=== PATIENT | male | born 1990 | race Caucasian/White ===

== ENCOUNTER 2017-01-19 12:14 | Inpatient (IN) | payer MEDICARE, OTHER ==
[~2017-01-19] VITALS: Ht 182.9 cm; Wt 80.1 kg
[2017-01-19 12:20] VITALS: BP 137/82; PULSE 86; RESP 17; TEMP 97.8; O2SAT 99
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
[2017-01-19] MEDS ORDERED: RISP3 PO (12:37)
[2017-01-19] MEDS ORDERED: LITH150C PO (12:37)
[2017-01-19 13:25] LABS: AUTOMATED NEUTROPHIL # 5.7 TH/MM3 (1.8-7.7); BASOPHIL % 0.2 % (0.0-2.0); EOSINOPHIL # 0.1 TH/MM3 (0-0.4); EOSINOPHIL % 0.9 % (0.0-4.0); HEMATOCRIT 40.1 % (39.0-51.0); HEMOGLOBIN 13.6 GM/DL (13.0-17.0); LYMPH % 22.9 % (9.0-44.0); LYMPHOCYTE # 1.9 TH/MM3 (1.0-4.8); MEAN CELL VOLUME 92.6 FL (80.0-100.0); MEAN CORPUSCULAR HEMOGLOBIN 31.3 PG (27.0-34.0); MEAN CORPUSCULAR HGB CONC 33.8 % (32.0-36.0); MEAN PLATELET VOLUME 9.4 FL (7.0-11.0); MONO % 7.2 % (0.0-8.0); MONOCYTE # 0.6 TH/MM3 (0-0.9); NEUT % 68.8 % (16.0-70.0); PLATELET COUNT 200 TH/MM3 (150-450); RED BLOOD COUNT 4.33 MIL/MM3 (4.50-5.90); RED CELL DISTRIBUTION WIDTH 13.9 % (11.6-17.2); WHITE BLOOD COUNT 8.3 TH/MM3 (4.0-11.0)
[2017-01-19 13:37] LABS: ALBUMIN 3.9 GM/DL (3.4-5.0); AST (GOT) 13 U/L (15-37); BICARBONATE 24.9 MEQ/L (21.0-32.0); BLOOD UREA NITROGEN 11 MG/DL (7-18); CALCIUM 8.7 MG/DL (8.5-10.1); CHLORIDE 106 MEQ/L (98-107); GLOMERULAR FILTRATION RATE 118 ML/MIN (>89); GLUCOSE,RANDOM 84 MG/DL (74-106); SODIUM (NA) 138 MEQ/L (136-145)
[2017-01-19 13:38] LABS: ALT (GPT) 32 U/L (12-78)
[2017-01-19 13:40] LABS: ALKALINE PHOSPHATASE 65 U/L (45-117); TOTAL BILIRUBIN ADULT 0.2 MG/DL (0.2-1.0); TOTAL PROTEIN 6.8 GM/DL (6.4-8.2)
[2017-01-19 15:32] VITALS: BP 124/83; TEMP 97.8
[2017-01-19 16:29] VITALS: BP 131/83; PULSE 73; RESP 18; O2SAT 97
[2017-01-19] MEDS ORDERED: ACETAMINOPHEN 325 MG TAB PO PRN (16:30)
[2017-01-19] MEDS ORDERED: diphenhydrAMINE HCL 50 MG/ML VIAL IM PRN (16:30)
[2017-01-19] MEDS ORDERED: diphenhydrAMINE HCL 50 MG CAP PO PRN (16:30)
[2017-01-19] MEDS ORDERED: LORazepam 1 MG TAB PO PRN (16:30)
[2017-01-19] MEDS ORDERED: ALUMINUM/MAGNESIUM/SIMETH 30 ML CUP PO PRN (16:30)
[2017-01-19] MEDS ORDERED: MAGNESIUM HYDROXIDE SUSP 30 ML CUP PO PRN (16:30)
[2017-01-19] MEDS ORDERED: LORazepam 2 MG/ML VIAL IM PRN (16:30)
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
[2017-01-19] MEDS ORDERED: ARIPiprazole 5 MG TAB PO SCH (21:00)
[2017-01-19 21:05] VITALS: BP 139/84; PULSE 76; RESP 16; TEMP 98; O2SAT 99
[2017-01-20 08:00] LABS: AUTOMATED NEUTROPHIL # 4.4 TH/MM3 (1.8-7.7); BASOPHIL % 0.4 % (0.0-2.0); EOSINOPHIL % 0.6 % (0.0-4.0); HEMATOCRIT 42.1 % (39.0-51.0); HEMOGLOBIN 14.2 GM/DL (13.0-17.0); LYMPH % 20.3 % (9.0-44.0); LYMPHOCYTE # 1.3 TH/MM3 (1.0-4.8); MEAN CELL VOLUME 92.5 FL (80.0-100.0); MEAN CORPUSCULAR HEMOGLOBIN 31.2 PG (27.0-34.0); MEAN CORPUSCULAR HGB CONC 33.8 % (32.0-36.0); MEAN PLATELET VOLUME 9.5 FL (7.0-11.0); MONO % 6.6 % (0.0-8.0); MONOCYTE # 0.4 TH/MM3 (0-0.9); NEUT % 72.1 % (16.0-70.0); PLATELET COUNT 199 TH/MM3 (150-450); RED BLOOD COUNT 4.55 MIL/MM3 (4.50-5.90); RED CELL DISTRIBUTION WIDTH 13.9 % (11.6-17.2); WHITE BLOOD COUNT 6.2 TH/MM3 (4.0-11.0)
[2017-01-20 08:36] LABS: ALBUMIN 3.9 GM/DL (3.4-5.0); ALT (GPT) 31 U/L (12-78); AST (GOT) 12 U/L (15-37); BICARBONATE 24.8 MEQ/L (21.0-32.0); BLOOD UREA NITROGEN 8 MG/DL (7-18); CHLORIDE 104 MEQ/L (98-107); CHOLESTEROL 154 MG/DL (120-200); CREATININE 0.78 MG/DL (0.60-1.30); GLOMERULAR FILTRATION RATE 121 ML/MIN (>89); GLUCOSE,RANDOM 82 MG/DL (74-106); SODIUM (NA) 138 MEQ/L (136-145); TRIGLYCERIDES 52 MG/DL (42-150)
[2017-01-20 09:03] LABS: ALKALINE PHOSPHATASE 59 U/L (45-117); CHOLESTEROL/ HDL RATIO 2.17 RATIO; HDL CHOLESTEROL 70.9 MG/DL (40.0-60.0); LDL CHOLESTEROL 73 MG/DL (0-99); TOTAL BILIRUBIN ADULT 0.5 MG/DL (0.2-1.0); TOTAL PROTEIN 7.3 GM/DL (6.4-8.2)
[2017-01-20] MEDS ORDERED: ACETAMINOPHEN 325 MG TAB PO PRN (10:45)
[2017-01-20 10:53] LABS: HEMOGLOBIN A1C 5.6 % (4.3-6.0)
--- NOTE | 2017-01-20 11:10 | HHI.PYPN ---
Subjective Remarks Patient initially seen by Dr. Yuriy Ellis on 01/19/17 his initial psychiatric evaluation reviewed and agreed with. Patient seen by me today I have completed the inpatient admission psychiatric template. Review the med reconciliation. I also talked to the patient's mother rahul at [phone]. She verifies his history. It appears she is a single parent they initially moved to the [facility] about 2 months ago to be closer to family. It appears that relocation was a failure. Then on the process of returning to [place]. Was a question of the patient's compliance with his schedule psychotropic medication during this interval, he also acknowledges continued daily marijuana as much as he can. His urine toxicology is also positive for marijuana. [place] level on admission was 0.1. Then event mother is somewhat concerned about the efficacy of the medication though she minimizes the role that marijuana is playing. She is also done some self adjustment of his medications primarily the Respinol. He has been hospitalized in [place] the diagnosis of bipolar disorder. There is a family history of bipolar disorder also. At the present time patient sitting quietly in his room nurse Lexi present throughout session patient is calm cooperative me but quite vigilant with significant paranoid overlay Tamiko frequently is somewhat suspicious glance towards the nurse. However does acknowledge his mental health history and his marijuana use, though he does somewhat vaguely acknowledge multiple drug abuse including cocaine and mildly use, along with benzodiazepines. He is willing to continue on with his Respinol. His mother also agrees for continuation of the Respinol. Mother does wish to return to [place] as soon as possible. However this time I feel we have no further observation and treatment on this young man before releasing him to his mother. We'll give him 4 mg Respinol at this time, or to 3 mg twice a day per the med reconciliation for tonight and tomorrow morning. We'll meet with patient's mother 9 AM tomorrow morning if things seem stable and mother is willing to do this we'll discharge him tomorrow to the mother to continue his journey back home where he does have appropriate mental health and medical care over this time he does continue to meet [place] criteria I did a first opinion petition supporting [place] act requests a second opinion petition. I feel has capacity to sign for his medications Review of Systems Constitutional: DENIES: Diaphoretic episodes, Fatigue, Fever, Weight gain, Weight loss, Chills, Dizziness, Change in appetite, Night Sweats Endocrine: DENIES: Heat/cold intolerance, Polydipsia, Polyuria, Polyphagia Eyes: DENIES: Blurred vision, Diplopia, Eye inflammation, Eye pain, Vision loss , Photosensitivity, Double Vision Ears, nose, mouth, throat: DENIES: Tinnitus, Hearing loss, Vertigo, Nasal discharge, Oral lesions, Throat pain, Hoarseness, Ear Pain, Running Nose, Epistaxis, Sinus Pain, Toothache, Odynophagia Respiratory: DENIES: Apneas, Cough, Snoring, Wheezing, Hemoptysis, Sputum production, Shortness of breath Cardiovascular: DENIES: Chest pain, Palpitations, Syncope, Dyspnea on Exertion , PND, Lower Extremity Edema, Orthopnea, Claudication Gastrointestinal: DENIES: Abdominal pain, Black stools, Bloody stools, Constipation, Diarrhea, Nausea, Vomiting, Difficulty Swallowing, Anorexia Genitourinary: DENIES: Sexual dysfunction, Urinary frequency, Urinary incontinence, Urgency, Hematuria, Dysuria, Nocturia, Penile Discharge, Testicular Pain, Testicular Swelling Musculoskeletal: DENIES: Joint pain, Muscle aches, Stiffness, Joint Swelling, Back pain, Neck pain Integumentary: DENIES: Abnormal pigmentation, Nail changes, Pruritus, Rash Hematologic/lymphatic: DENIES: Bruising, Lymphadenopathy Immunologic/allergic: DENIES: Eczema, Urticaria Neurologic: DENIES: Abnormal gait, Headache, Localized weakness, Paresthesias, Seizures, Speech Problems, Tremor, Poor Balance Psychiatric: COMPLAINS OF: Hallucinations (vague auditory marked vigilance) Mental Status Examination Appearance: Appropriate Consciousness: Alert Orientation: x4 Motor Activity: Normal gait Speech: Unremarkable Language: Adequate Fund of Knowledge: Adequate Attention and Concentration: Adequate Memory: Unremarkable Mood: Anxious, Irritable (mildly) Affect: Other (increase range and intensity) Thought Process & Associations: Loose associations Thought Content: Bizarre thinking, Delusional Hallucination Type: None, Auditory (a may be responding to some internal stimuli) Delusion Type: Paranoid Suicidal Ideation: No Suicidal Plan: No Suicidal Intention: No Homicidal Ideation: No Homicidal Plan: No Homicidal Intention: No Insight: Poor Judgment: Poor Results Labs Test 01/19/17 12:40 01/19/17 12:45 01/19/17 13:49 01/20/17 06:49 White Blood Count 8.3 TH/MM3 6.2 TH/MM3 Red Blood Count 4.33 MIL/MM3 4.55 MIL/MM3 Hemoglobin 13.6 GM/DL 14.2 GM/DL Hematocrit 40.1 % 42.1 % Mean Corpuscular Volume 92.6 FL 92.5 FL Mean Corpuscular Hemoglobin 31.3 PG 31.2 PG Mean Corpuscular Hemoglobin Concent 33.8 % 33.8 % Red Cell Distribution Width 13.9 % 13.9 % Platelet Count 200 TH/MM3 199 TH/MM3 Mean Platelet Volume 9.4 FL 9.5 FL Neutrophils (%) (Auto) 68.8 % 72.1 % Lymphocytes (%) (Auto) 22.9 % 20.3 % Monocytes (%) (Auto) 7.2 % 6.6 % Eosinophils (%) (Auto) 0.9 % 0.6 % Basophils (%) (Auto) 0.2 % 0.4 % Neutrophils # (Auto) 5.7 TH/MM3 4.4 TH/MM3 Lymphocytes # (Auto) 1.9 TH/MM3 1.3 TH/MM3 Monocytes # (Auto) 0.6 TH/MM3 0.4 TH/MM3 Eosinophils # (Auto) 0.1 TH/MM3 0.0 TH/MM3 Basophils # (Auto) 0.0 TH/MM3 0.0 TH/MM3 CBC Comment DIFF FINAL DIFF FINAL Differential Comment Blood Urea Nitrogen 11 MG/DL 8 MG/DL Creatinine 0.80 MG/DL 0.78 MG/DL Random Glucose 84 MG/DL 82 MG/DL Total Protein 6.8 GM/DL 7.3 GM/DL Albumin 3.9 GM/DL 3.9 GM/DL Calcium Level 8.7 MG/DL 9.0 MG/DL Alkaline Phosphatase 65 U/L 59 U/L Aspartate Amino Transf (AST/SGOT) 13 U/L 12 U/L Alanine Aminotransferase (ALT/SGPT) 32 U/L 31 U/L Total Bilirubin 0.2 MG/DL 0.5 MG/DL Sodium Level 138 MEQ/L 138 MEQ/L Potassium Level 3.7 MEQ/L 4.1 MEQ/L Chloride Level 106 MEQ/L 104 MEQ/L Carbon Dioxide Level 24.9 MEQ/L 24.8 MEQ/L Anion Gap 7 MEQ/L 9 MEQ/L Estimat Glomerular Filtration Rate 118 ML/MIN 121 ML/MIN Urine Opiates Screen NEG Urine Barbiturates Screen NEG Urine Amphetamines Screen NEG Urine Benzodiazepines Screen NEG Urine Cocaine Screen NEG Urine Cannabinoids Screen POS [place] Level 0.1 MEQ/L Triglycerides Level 52 MG/DL Cholesterol Level 154 MG/DL LDL Cholesterol 73 MG/DL HDL Cholesterol 70.9 MG/DL Cholesterol/HDL Ratio 2.17 RATIO Vitamin B12 Level 273 PG/ML 25-Hydroxy Vitamin D Total 29.9 ng/ML Thyroid Stimulating Hormone 3rd Gen 0.530 uIU/ML Vitals/IOs Vital Signs Date Time Temp Pulse Resp B/P (MAP) Pulse Ox O2 Delivery O2 Flow Rate FiO2 01/19/17 21:05 98.0 76 16 139/84 (102) 99 01/19/17 16:29 Room Air Assessment & Plan Problem List: (1) Bipolar I disorder, most recent episode mixed, severe with psychotic features ICD Codes: F31.64 - Bipolar disorder, current episode mixed, severe, with psychotic features Assessment & Plan Estimated LOS: days patient continues somewhat paranoid intense and vigilant, appears to be responding to internal stimuli, will start medication as mentioned above. Meet with mother tomorrow morning at 9 AM for further disposition Justification for Cont. Inpt. At this time patient decompensated placed on the lower level of care Discharge Planning Will meet with mother tomorrow morning at 9 AM to discuss further treatment and possible discharge Request HC Surrog/Guard Advoc?: Amadeo Lopez MD Jan 20, 2017 11:10
[2017-01-20] MEDS ORDERED: risperiDONE 1 MG TAB PO ONE (11:30)
[2017-01-20] MEDS ORDERED: risperiDONE 3 MG TAB PO ONE (11:30)
--- NOTE | 2017-01-20 13:33 | EKG ---
Date Performed: 01/19/2017 Time Performed: 18:16:26 PTAGE: 26 years EKG: Sinus rhythm POSSIBLE RIGHT VENTRICULAR CONDUCTION DELAY DIFFUSE MILD ST ELEVATION POSSIBLY ASSOCIATED WITH AN IN COMPLETE BUNDLE BRANCH BLOCK BUT CANNOT RULE OUT ISCHEMIA IN SPITE OF AGE Clinical correlation is rec ommended NO PREVIOUS TRACING DOCTOR: Lucho Toth Interpretating Date/Time 01/20/2017 13:30:29
--- NOTE | 2017-01-20 13:35 | EKG ---
Date Performed: 01/20/2017 Time Performed: 09:54:54 PTAGE: 26 years EKG: Sinus rhythm INCOMPLETE RIGHT BUNDLE BRANCH BLOCK RIGHT BUNDLE BRANCH BLOCK PATTERN IS MORE PROMINENT THEN PRIOR TRACING. T-WAVE IN V2 IS NOW INVERTED.CONTINUED CLINICAL CORRELATION IS RECOMMENDED. BORDERLINE ECG PREVIOUS TRACING : 01/19/2017 18.16 DOCTOR: Lucho Toth Interpretating Date/Time 01/20/2017 13:31:30
[2017-01-20 18:02] VITALS: BP 121/70; PULSE 101; RESP 18; TEMP 98.4; O2SAT 99
[2017-01-20] MEDS: risperiDONE 3 MG TAB PO SCH (21:04)
[2017-01-21] MEDS: hydrOXYzine HCL 50 MG TAB PO PRN ×2 (01:50→01:54)
[2017-01-21 05:31] VITALS: BP 122/73; PULSE 81; RESP 16; TEMP 98.4; O2SAT 96
[2017-01-21] MEDS: risperiDONE 3 MG TAB PO SCH (08:20)
[2017-01-21] MEDS ORDERED: RISP3 PO (09:17)
[2017-01-21] MEDS ORDERED: LORA-474 PO (09:17)
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
[2017-01-21] MEDS ORDERED: LORazepam 1 MG TAB PO ONE (10:00)
== END 2017-01-21 10:45 | disposition home or self-care (01) | DRG 885 ==
LOC: NEPE 12:14 → NEDA 16:21 → H270 19:50
PROVIDERS: ADMIT Psychiatry & Neurology Psychiatry; ATTEND Psychiatry & Neurology Psychiatry
DX: F31.64 Bipolar disorder, current episode mixed, severe, with psychotic features (principal); F14.10 Cocaine abuse, uncomplicated; F12.10 Cannabis abuse, uncomplicated; Z72.0 Tobacco use; Z81.8 Family history of other mental and behavioral disorders
CPT/HCPCS: 80053; 80061; 80178; 80307; 82306; 82607; 83036; 84443; 85025; 93005; 99285